=== PATIENT | male | born 2000 | race Caucasian/White ===

== ENCOUNTER → 2020-09-17 | Day surgery (SDC) | payer SELFPAY ==
[~2020-09-17] VITALS: Ht 188 cm; Wt 83.5 kg
== END | disposition home or self-care (01) ==
LOC: OR 08:12
PROVIDERS: Orthopaedic Surgery
PROC: 0PSN04Z Reposition Left Carpal with Internal Fixation Device, Open Approach (ICD-10-PCS; principal; 2020-09-17 10:05)
DX: S62.022A Displaced fracture of middle third of navicular [scaphoid] bone of left wrist, initial encounter for closed fracture (principal); Z20.822 Contact with and (suspected) exposure to COVID-19; W19.XXXA Unspecified fall, initial encounter
CPT/HCPCS: 73110; 76000; C1713; J0690; J1100; J2001; J2250; J2405; J2704; J2710; J3010; J7120; U0002